=== PATIENT | male | born 1960 | race Caucasian/White ===

== ENCOUNTER 2021-03-16 17:52 | Emergency (ER) | payer OTHER ==
[2021-03-16] MEDS ORDERED: Diphtheria,Pertussis(Acell),Tetanus Vaccine 0.5 ML Syringe IM ONE (18:23)
[2021-03-16] MEDS ORDERED: Lidocaine 1% 10 ML MDV ONE (18:33)
[2021-03-16 18:54] LABS: ACETAMINOPHEN 0 ug/mL (10-30)
[2021-03-16] MEDS ORDERED: Albuterol/Ipratropium 3.0-0.5 MG/3 ML Neb Soln NEB ONE (18:56)
[2021-03-16 19:26] LABS: HEMOGLOBIN A1C 5.9 %
[2021-03-16] MEDS ORDERED: LORazepam 1 MG Tab PO ONE (22:29)
[2021-03-17] MEDS ORDERED: LORazepam 1 MG Tab ONE (03:14)
[2021-03-17] MEDS: LORazepam 1 MG Tab PO PRN ×3 (03:15→10:36)
== END 2021-03-17 14:00 ==
LOC: JD.ED 17:52
DX: F32.A Depression, unspecified (principal); S61.412A Laceration without foreign body of left hand, initial encounter; S61.411A Laceration without foreign body of right hand, initial encounter; S51.812A Laceration without foreign body of left forearm, initial encounter; S51.811A Laceration without foreign body of right forearm, initial encounter; S41.012A Laceration without foreign body of left shoulder, initial encounter; F17.200 Nicotine dependence, unspecified, uncomplicated; Z20.822 Contact with and (suspected) exposure to COVID-19; Z23 Encounter for immunization; X78.9XXA Intentional self-harm by unspecified sharp object, initial encounter
CPT/HCPCS: 12004; 36415; 80053; 80143; 80179; 80306; 80307; 83036; 85025; 87635; 90471; 90715; 99285; A9270; J7620-GY; U0002